=== PATIENT | male | born 1985 | race Caucasian/White ===

== ENCOUNTER 2016-05-09 20:59 | Emergency (ER) | payer SELFPAY ==
[2016-05-09 21:20] VITALS: BP 144/77
--- NOTE | 2016-05-09 21:29 | ED.ADGEN ---
Adult General HPI HPI Patient is a 30-year-old male presents emergency department complaining of right ankle pain after getting it caught in a hole at 3:00 yesterday (30 hours ago). Pain is primarily on the medial side. No prehospital intervention other than [id number] medication. Review of Systems Review of Systems Constitutional: Denies fever or chills [] Eyes: Denies change in visual acuity, redness, or eye pain [] HENT: Denies nasal congestion or sore throat [] Respiratory: Denies cough or shortness of breath [] Cardiovascular: No additional information not addressed in HPI [] GI: Denies abdominal pain, nausea, vomiting, bloody stools or diarrhea [] : Denies dysuria or hematuria [] Musculoskeletal: Denies back pain or joint pain [] Integument: Denies rash or skin lesions [] Neurologic: Denies headache, focal weakness or sensory changes [] Endocrine: Denies polyuria or polydipsia [] Current Medications Current Medications Current Medications Medications (Trade) Dose Ordered Sig/Sylvester Start Time Stop Time Status Last Admin Dose Admin Acetaminophen/ Hydrocodone Bitart (Lortab 5/325) 2 tab 1X ONCE 05/09/16 22:00 05/09/16 22:01 Allergies Allergies Allergies Coded Allergies Type Severity Reaction Last Updated Verified Penicillins Allergy Unknown 05/09/16 Yes Physical Exam Physical Exam Constitutional: Well developed, well nourished, no acute distress, non-toxic appearance. [] HENT: Normocephalic, atraumatic, bilateral external ears normal, oropharynx moist, no oral exudates, nose normal. [] Eyes: PERRLA, EOMI, conjunctiva normal, no discharge. [] Neck: Normal range of motion, no tenderness, supple, no stridor. [] Cardiovascular:Heart rate regular rhythm, no murmur [] Lungs & Thorax: Bilateral breath sounds clear to auscultation [] Abdomen: Bowel sounds normal, soft, no tenderness, no masses, no pulsatile masses. [] Skin: Warm, dry, no erythema, no rash. [] Extremities: Medial malleolus is tender to palpation with minimal edema, no cyanosis, no clubbing, ROM intact, [] Neurologic: Alert and oriented X 3, normal motor function, normal sensory function, no focal deficits noted. [] Psychologic: Affect normal, judgement normal, mood normal. [] EKG EKG [] Radiology/Procedures Radiology/Procedures Ankle x-ray interpreted by me, no acute bony abnormality. No fracture. [] Course & Med Decision Making Course & Med Decision Making Pertinent Labs and Imaging studies reviewed. (See chart for details) Patient was placed in an air splint. He was sent home with supportive care and follow-up instructions. Given a prescription for [place]. [] Final Impression Final Impression Right ankle sprain [] Problems: Dragon Disclaimer Dragon Disclaimer This electronic medical record was generated, in whole or in part, using a voice recognition dictation system. THOMPSON COOPER MD May 09, 2016 21:29
[2016-05-09] MEDS ORDERED: HYDR-971 PO (21:35)
[2016-05-09] MEDS ORDERED: HYDROCODONE/APAP 5/325MG TABLET. PO ONE (22:00)
--- NOTE | 2016-05-10 08:26 | RAD ---
Portable right ankle, 3 views, 05/09/2016: History: Pain after a fall No fracture or dislocation is identified. There is a sclerotic patch in the distal tibia compatible with a benign bone island. There is mild soft tissue swelling about the ankle. IMPRESSION: No acute bony abnormality is detected.
== END 2016-05-09 21:50 | disposition home or self-care (01) ==
LOC: ER 21:04
DX: S93.401A Sprain of unspecified ligament of right ankle, initial encounter (principal); Z88.0 Allergy status to penicillin; X58.XXXA Exposure to other specified factors, initial encounter; Y93.89 Activity, other specified; Y99.8 Other external cause status; Y92.89 Other specified places as the place of occurrence of the external cause
CPT/HCPCS: 29515; 73610; 99284-25

== ENCOUNTER 2016-12-20 20:26 | Emergency (ER) | payer MEDICAID, MEDICARE ==
[~2016-12-20] VITALS: Ht 170.2 cm; Wt 90.3 kg
[~2016-12-20 20:26] MED LIST: HYDR-971 PO
[2016-12-20 20:30] VITALS: BP 150/85
[2016-12-20] MEDS ORDERED: IBUPROFEN 600 MG TABLET. PO ONE (21:00)
--- NOTE | 2016-12-21 04:09 | ED.ADGEN ---
Past History Past Medical History: Hypertension Past Surgical History: No Surgical History Alcohol Use: Occasionally Drug Use: None Adult General Chief Complaint Chief Complaint Left wrist pain HPI HPI Patient is a 31-year-old right-handed male who presents with left volar risk pain after picking up his daughter earlier this afternoon. Patient reports pain intense tenderness over flexor attending's with some numbness of his middle 3 fingers. Good range of motion pulses noted. Other symptoms or complaints. No medications taken prior to ED arrival[] Review of Systems Review of Systems Review symptoms as per history of present illness. Current Medications Current Medications Current Medications Medications (Trade) Dose Ordered Sig/Sylvester Start Time Stop Time Status Last Admin Dose Admin Ibuprofen (Motrin) 600 mg 1X ONCE 12/20/16 21:00 12/20/16 21:01 DC 12/20/16 21:00 600 MG Allergies Allergies Allergies Coded Allergies Type Severity Reaction Last Updated Verified Penicillins Allergy Unknown 12/20/16 Yes Physical Exam Physical Exam Constitutional: Well developed, well nourished, no acute distress, non-toxic appearance. [] HENT: Normocephalic, atraumatic, bilateral external ears normal, oropharynx moist, no oral exudates, nose normal. [] Extremities: Left wrist/hand, no deformity bruising swelling noted. Tenderness over flexor tendons. Range of motion intact. Sensation and motor function intact. [] Neurologic: Alert and oriented X 3, normal motor function, normal sensory function, no focal deficits noted. [] Psychologic: Affect normal, judgement normal, mood normal. [] Current Patient Data Vital Signs Vital Signs Date Time Temp Pulse Resp B/P (MAP) Pulse Ox O2 Delivery O2 Flow Rate FiO2 12/20/16 20:30 98.4 96 18 98 Room Air EKG EKG [] Radiology/Procedures Radiology/Procedures [] Course & Med Decision Making Course & Med Decision Making Pertinent Labs and Imaging studies reviewed. (See chart for details) [Exam consistent with tendinitis, supportive recommendations offered.] Final Impression Final Impression [Left wrist tendinitis] Problems: Dragon Disclaimer Dragon Disclaimer This electronic medical record was generated, in whole or in part, using a voice recognition dictation system. CONNER BARAJAS DO Dec 21, 2016 04:09
== END 2016-12-20 21:12 | disposition home or self-care (01) ==
LOC: ER 20:26
DX: M77.9 Enthesopathy, unspecified (principal); I10 Essential (primary) hypertension; Z88.0 Allergy status to penicillin
CPT/HCPCS: 99282

== ENCOUNTER 2017-07-19 18:05 | Emergency (ER) | payer MEDICARE ==
[~2017-07-19] VITALS: Ht 170.2 cm; Wt 83.9 kg
[2017-07-19 18:20] VITALS: BP 109/82
[2017-07-19] MEDS ORDERED: DEXAMETHASONE 4 MG TABLET PO ONE (18:30)
--- NOTE | 2017-07-19 18:46 | PHYS DOC ---
Past History Past Medical History: Hypertension Past Surgical History: No Surgical History Alcohol Use: None Drug Use: None Adult General Chief Complaint Chief Complaint: SORE THROAT HPI HPI Patient is a 31-year-old male who is presenting with sore throat. 3 days ago associated with rhinorrhea and a dry cough no fever symptoms are worse with swallowing children have been sick at home. Patient is brought in with his mother. Review of Systems Review of Systems Constitutional: Denies fever or chills [] Eyes: Denies change in visual acuity, redness, or eye pain [] Respiratory: Denie shortness of breath [] Cardiovascular: No additional information not addressed in HPI [] All other systems were reviewed and found to be within normal limits, except as documented in this note. Current Medications Current Medications Current Medications Medications (Trade) Dose Ordered Sig/Sylvester Start Time Stop Time Status Last Admin Dose Admin Dexamethasone (Decadron) 6 mg 1X ONCE 07/19/17 18:30 07/19/17 18:31 DC 07/19/17 18:40 6 MG Allergies Allergies Allergies Coded Allergies Type Severity Reaction Last Updated Verified Penicillins Allergy Unknown 12/20/16 Yes Physical Exam Physical Exam Constitutional: Well developed, well nourished, no acute distress, non-toxic appearance. [] HENT: Normocephalic, atraumatic, bilateral external ears normal, oropharynx moist, TMs are clear no exudate uvula in midline Eyes: PERRLA, EOMI, conjunctiva normal, no discharge. [] Neck: Normal range of motion, no tenderness, supple, no stridor. [] Cardiovascular:Heart rate regular rhythm, no murmur [] Lungs & Thorax: Bilateral breath sounds clear to auscultation [] Abdomen: Bowel sounds normal, soft, no tenderness, no masses, no pulsatile masses. [] Skin: Warm, dry, no erythema, no rash. [] Back: No tenderness, no CVA tenderness. [] Extremities: No tenderness, no cyanosis, no clubbing, ROM intact, no edema. [] Neurologic: Alert and oriented X 3, normal motor function, normal sensory function, no focal deficits noted. [] Psychologic: Affect normal, judgement normal, mood normal. [] Current Patient Data Vital Signs Vital Signs Date Time Temp Pulse Resp B/P (MAP) Pulse Ox O2 Delivery O2 Flow Rate FiO2 07/19/17 18:20 98.3 96 18 96 Room Air EKG EKG [] Radiology/Procedures Radiology/Procedures [] Course & Med Decision Making Course & Med Decision Making Pertinent Labs and Imaging studies reviewed. (See chart for details) 31-year-old male with URI symptoms rapid strep negative oropharyngeal exam is not consistent with strep throat peritonsillar abscess or other acute process. Dragon Disclaimer Dragon Disclaimer This electronic medical record was generated, in whole or in part, using a voice recognition dictation system. Departure Departure: Impression: Primary Impression: Pharyngitis Disposition: HOME, SELF-CARE Condition: IMPROVED ENEDELIA DONG MD July 19, 2017 18:46
== END 2017-07-19 18:51 | disposition home or self-care (01) ==
LOC: ER 18:05
DX: J02.9 Acute pharyngitis, unspecified (principal); I10 Essential (primary) hypertension; Z88.0 Allergy status to penicillin
CPT/HCPCS: 87070; 87880; 99283; J8540

== ENCOUNTER 2018-03-23 18:50 | Emergency (ER) | payer MEDICAID ==
[~2018-03-23] VITALS: Ht 170.2 cm; Wt 81.6 kg
[~2018-03-23 18:50] MED LIST changes: +HYDR-3165 PO; -HYDR-971 PO
--- NOTE | 2018-03-23 18:54 | ED.ADGEN ---
Past History Past Medical History: Hypertension Past Surgical History: No Surgical History Alcohol Use: None Drug Use: None Adult General Chief Complaint Chief Complaint "...I was cutting brush and thorn trees.. yesterday and day before... my Lt. hand has swollen up where it got scratched...." HPI HPI Patient is a 32 year old male who presents with above hx and complaints of left hand cellulitis on the dorsum of hand. Patient has a few very small scratches. Patient denies any direct trauma to hand other than scratches. No history immunosuppression. No history of travel. No specific ill contacts. Patient does smoke. Patient's last tetanus was 2 years ago. There is no striations or adenopathy in the arm. Area of cellulitis appears to be a oblong [place] of approximately 8 cm x 4 cm. Distal neurovascular intact. Patient is right-hand dominant. Patient had no contact with animals. Review of Systems Review of Systems Constitutional: Denies fever or chills [] Eyes: Denies change in visual acuity, redness, or eye pain [] HENT: Denies nasal congestion or sore throat [] Respiratory: Denies cough or shortness of breath [] Cardiovascular: No additional information not addressed in HPI [] GI: Denies abdominal pain, nausea, vomiting, bloody stools or diarrhea [] : Denies dysuria or hematuria [] Musculoskeletal: Denies back pain or joint pain [] Integument: Denies rash or skin lesions []complaints of cellulitis left hand Neurologic: Denies headache, focal weakness or sensory changes [] Endocrine: Denies polyuria or polydipsia [] All other systems were reviewed and found to be within normal limits, except as documented in this note. Family History Family History Noncontributory Current Medications Current Medications Current Medications Medications (Trade) Dose Ordered Sig/Sylvester Start Time Stop Time Status Last Admin Dose Admin Hydrocodone Bitartrate/ Ibuprofen (Vicoprofen 7.5-200) 2 tab 1X ONCE 03/23/18 19:00 03/23/18 19:09 DC 03/23/18 19:22 2 TAB Trimethoprim/ Sulfamethoxazole (Bactrim Ds) 1 tab 1X ONCE 03/23/18 19:00 03/23/18 19:09 DC 03/23/18 19:22 1 TAB Allergies Allergies Allergies Coded Allergies Type Severity Reaction Last Updated Verified Penicillins Allergy Unknown 11/1/17 Yes Physical Exam Physical Exam Constitutional: Well developed, well nourished, no acute distress, non-toxic appearance. [] HENT: Normocephalic, atraumatic, bilateral external ears normal, oropharynx moist, no oral exudates, nose normal. [] Eyes: PERRLA, EOMI, conjunctiva normal, no discharge. Discoordinated gaze Neck: Normal range of motion, no tenderness, supple, no stridor. [] Cardiovascular:Heart rate regular rhythm, no murmur [] Lungs & Thorax: Bilateral breath sounds equal at apex with few scattered wheezes on auscultation [] Abdomen: Bowel sounds normal, soft, no tenderness, no masses, no pulsatile masses. [] Skin: Warm, dry, areas of cellulitis on the dorsum of left hand. Back: No tenderness, no CVA tenderness. [] Extremities: Lt hand tenderness, no cyanosis, no clubbing, ROM intact, Lt. hand edema. [] Neurologic: Alert and oriented X 3, normal motor function, normal sensory function, no focal deficits noted. [] Psychologic: Affect anxious, judgement normal, mood normal. [] Current Patient Data Vital Signs Vital Signs Date Time Temp Pulse Resp B/P (MAP) Pulse Ox O2 Delivery O2 Flow Rate FiO2 03/23/18 19:03 98.4 75 18 96 Room Air EKG EKG [] Radiology/Procedures Radiology/Procedures My interpretation of hand x-ray shows no obvious fracture dislocation. No obvious significant foreign body. Does have edema. See formal report when available[] Course & Med Decision Making Course & Med Decision Making Pertinent Labs and Imaging studies reviewed. (See chart for details) Soaking in warm salt water or Epsom salts 4 times a day , then massage area Polysporin 4 times a day. Take Tylenol and ibuprofen for pain. Take Bactrim DS twice a day for 10 days. Follow-up primary care. Return if any concerns. [] Final Impression Final Impression 1. Cellulitis[] Lt. hand Dragon Disclaimer Dragon Disclaimer This electronic medical record was generated, in whole or in part, using a voice recognition dictation system. Dragon Disclaimer This chart was dictated in whole or in part using Voice Recognition software in a busy, high-work load, and often noisy Emergency Department environment. It may contain unintended and wholly unrecognized errors or omissions. Discharge Summary Visit Information Final Diagnosis Problems Medical Problems: (1) Cellulitis Status: Acute Brief Hospital Course Allergies Allergies Coded Allergies Type Severity Reaction Last Updated Verified Penicillins Allergy Unknown 12/20/16 Yes Vital Signs Vital Signs Date Time Temp Pulse Resp B/P (MAP) Pulse Ox O2 Delivery O2 Flow Rate FiO2 03/23/18 19:03 98.4 75 18 96 Room Air Brief Hospital Course Mr. Rosenbaum is a 32 old male who presented with cellulitis dorsum Lt. hand. Discharge Information Condition at Discharge: Improved, Stable Disposition/Orders: D/C to Home Dischare Medications Current Medications Trimethoprim/ Sulfamethoxazole (Bactrim Ds) 1 tab 1X ONCE PO Last administered on 03/23/18at 19:22; Admin Dose 1 TAB; Start 03/23/18 at 19:00; Stop 03/23/18 at 19:09; Status DC Hydrocodone Bitartrate/ Ibuprofen (Vicoprofen 7.5-200) 2 tab 1X ONCE PO Last administered on 03/23/18at 19:22; Admin Dose 2 TAB; Start 03/23/18 at 19:00; Stop 03/23/18 at 19:09; Status DC Active Scripts Active Bactrim 400-80 Mg Tablet (Sulfamethoxazole/Trimethoprim) 1 Each Tablet 1 Tab PO BID Reported No Known Medications Prior To Admisstion (Info) Each 1 Each Discharge Summary Visit Information Final Diagnosis Problems Medical Problems: (1) Cellulitis Status: Acute Brief Hospital Course Allergies Allergies Coded Allergies Type Severity Reaction Last Updated Verified Penicillins Allergy Unknown 12/20/16 Yes Vital Signs Vital Signs Date Time Temp Pulse Resp B/P (MAP) Pulse Ox O2 Delivery O2 Flow Rate FiO2 03/23/18 19:03 98.4 75 18 96 Room Air Brief Hospital Course Mr. Rosenbaum is a 32 old [sex] who presented with [ ] Discharge Information Dischare Medications Current Medications Trimethoprim/ Sulfamethoxazole (Bactrim Ds) 1 tab 1X ONCE PO Last administered on 03/23/18at 19:22; Admin Dose 1 TAB; Start 03/23/18 at 19:00; Stop 03/23/18 at 19:09; Status DC Hydrocodone Bitartrate/ Ibuprofen (Vicoprofen 7.5-200) 2 tab 1X ONCE PO Last administered on 03/23/18at 19:22; Admin Dose 2 TAB; Start 03/23/18 at 19:00; Stop 03/23/18 at 19:09; Status DC Active Scripts Active Bactrim 400-80 Mg Tablet (Sulfamethoxazole/Trimethoprim) 1 Each Tablet 1 Tab PO BID Reported No Known Medications Prior To Admisstion (Info) Each 1 Each CLIFF HURD MD Mar 23, 2018 18:54
[2018-03-23] MEDS ORDERED: HYDROcodon/IBUPROFEN 7.5/200MG 1 TAB TABLET PO ONE (19:00)
[2018-03-23] MEDS ORDERED: SMZ/TMP 800/160MG TABLET. PO ONE (19:00)
[2018-03-23 19:03] VITALS: BP 131/72
[2018-03-23] MEDS ORDERED: SULF1TAB23 PO (19:04)
--- NOTE | 2018-03-23 20:38 | RAD ---
3 views left hand dated 03/23/2018. No comparison available. CLINICAL INDICATION: Pain and swelling after injury. FINDINGS: 3 views of left hand show normal bony alignment. No displaced fracture. No acute osseous or articular abnormality. No destructive changes or erosions. IMPRESSION: No acute radiographic abnormality. Electronically signed by: Nathan Zeng MD (03/23/2018 8:33 PM) [facility]
== END 2018-03-23 19:26 | disposition home or self-care (01) ==
LOC: ER 18:50
DX: L03.114 Cellulitis of left upper limb (principal); I10 Essential (primary) hypertension; Z88.0 Allergy status to penicillin
CPT/HCPCS: 73130; 99283

== ENCOUNTER 2021-01-23 18:48 | Emergency (ER) | payer SELFPAY ==
[~2021-01-23] VITALS: Ht 170.2 cm; Wt 93.3 kg
[~2021-01-23 18:48] MED LIST changes: +SULF1TAB23 PO
[2021-01-23] MEDS ORDERED: IBUPROFEN 600 MG TABLET. PO ONE (19:15)
--- NOTE | 2021-01-23 19:15 | PHYS DOC ---
Past History Past Medical History: Hypertension Past Surgical History: No Surgical History Alcohol Use: Sober Drug Use: None Adult General Chief Complaint Chief Complaint: RIB PAIN HPI HPI Patient is a 35-year-old male that presents with chest wall pain that started 3 days ago when he was changing a tire, was pushing on the tire, felt the sharp twinge in the left chest, 6 out of 10 with no radiation. States that since then has had intermittent pain in the area worse with twisting movements pressure on the area. Denies any other recent traumas, illnesses, fevers, other chest pain, shortness of breath, wheezing, dyspnea on exertion, orthopnea, PND or edema. Denies any abdominal pain, nausea, vomiting, diarrhea, blood in the stool. Review of Systems Review of Systems Review of systems otherwise unremarkable except noted in HPI Current Medications Current Medications Current Medications Medications (Trade) Dose Ordered Sig/Sylvester Start Time Stop Time Status Last Admin Dose Admin Ibuprofen (Motrin) 600 mg 1X ONCE 01/23/21 19:15 01/23/21 19:16 Allergies Allergies Allergies Coded Allergies Type Severity Reaction Last Updated Verified Penicillins Allergy Intermediate 01/23/21 Yes Physical Exam Physical Exam Constitutional: Well developed, well nourished, no acute distress, non-toxic appearance. [] HENT: Normocephalic, atraumatic, Eyes: conjunctiva normal, no discharge. [] Cardiovascular:Heart rate regular rhythm, no murmur [] Lungs & Thorax: Bilateral breath sounds clear to auscultation, no obvious swelling, bruising or deformities noted [] Abdomen: soft, no tenderness, no masses, no pulsatile masses. [] Skin: Warm, dry, no erythema, no rash. [] Back: no CVA tenderness. [] Extremities: No tenderness, no cyanosis, no clubbing, ROM intact, no edema. [] Neurologic: Alert and oriented X 3, normal motor function, normal sensory function, no focal deficits noted. [] Psychologic: Affect normal, judgement normal, mood normal. [] Current Patient Data Vital Signs Vital Signs Date Time Temp Pulse Resp B/P (MAP) Pulse Ox O2 Delivery O2 Flow Rate FiO2 01/23/21 18:54 98.2 69 18 150/76 (100) 99 Room Air EKG EKG [] Radiology/Procedures Radiology/Procedures Imaging with no acute osseous abnormalities. [] Heart Score C/O Chest Pain: Yes HEART Score for Chest Pain: HEART Score for Chest Pain Response (Comments) Value History Slighlty/Non-Suspicious 0 ECG Nonspecific Repolarizatio 1 Age < 45 0 Risk Factors 1 or 2 Risk Factors 1 Troponin < Normal Limit 0 Total 2 Risk Factors: Risk Factors: DM, Current or recent (<one month) smoker, HTN, HLP, family history of CAD, obesity. Risk Scores: Risk Factors: DM, Current or recent (<one month) smoker, HTN, HLP, family history of CAD, obesity. Course & Med Decision Making Course & Med Decision Making Patient is a 35-year-old male presents with chest wall pain Vital signs initially normal for hypertension. Physical exam noted above. EKG with a rate of 65, QRS of 114, QTc 381, right bundle branch block, no STEMI. Troponin normal. Imaging with no acute osseous abnormalities. Discussed all findings with patient. Advised on symptom treatment at home. Advised to follow-up with primary care physician. Patient grateful, verbalized understanding and agreed with plan of discharge. [] Dragon Disclaimer Dragon Disclaimer This electronic medical record was generated, in whole or in part, using a voice recognition dictation system. Departure Departure: Impression: Primary Impression: Chest wall pain Disposition: HOME / SELF CARE / HOMELESS Condition: GOOD Referrals: PCP,NO (PCP) CHU CUBA MD Patient Instructions: Chest Pain (Nonspecific), RICE - Routine Care for Injuries Additional Instructions: Need for coming into the emergency department tonight allowing us to take care of you. Please read the attached information carefully to go back over some of the things we discussed. He can continue Tylenol, ibuprofen and ice as we discussed. Although your EKG looking at your heart was reassuring as was the lab that looks at your heart and your x-rays there is always a chance that something else could be going on and you should follow-up with your primary care physician as soon as you can to update them on your ED visit and set up a follow-up. Please come back to the emergency department immediately with any of the new or concerning symptoms we discussed. CAROLINA PRITCHARD MD Jan 23, 2021 19:15
[2021-01-23 20:22] VITALS: BP 126/59
--- NOTE | 2021-01-23 21:54 | RAD ---
Site ID: [id number] EXAMINATION: XR RIBS MIN 3 VIEWS LT W/PA CHEST. HISTORY: 35 years Male Reason: left rib/chest pain with palp, UPPER HALF ANT. RIBS PAIN / Spl. Inst ructions: PULLING INJURY ON 01/20/2021 / COMPARISON: None. Findings: Chest radiograph: The lungs are clear. The heart size is normal. There is no effusion or pneumothorax. The mediastinum and mervin appear unremarkable. Multiple left rib views demonstrate no fracture. Impression: Unremarkable study. Electronically signed by: Otoniel Cain MD (01/23/2021 9:52 PM) [id number]
--- NOTE | 2021-01-23 22:05 | EKG ---
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
== END 2021-01-23 20:50 | disposition home or self-care (01) ==
LOC: ER 18:48
DX: R07.89 Other chest pain (principal); I10 Essential (primary) hypertension; Z88.0 Allergy status to penicillin
CPT/HCPCS: 36415; 71101; 84484; 93005; 99285